=== PATIENT | female | born 1965 | race African-American/Black ===

== ENCOUNTER 2024-04-06 01:45 | Inpatient (IN) | payer MEDICARE ==
[2024-04-06] MEDS ORDERED: Nitroglycerin 0.4 MG TAB 1 EACH SL PRN (10:31)
[2024-04-06] MEDS ORDERED: Dextrose 50% Abboject 50 ML SYRINGE SLOW IVP PRN (10:45)
[2024-04-06] MEDS ORDERED: Insulin Lispro 100 UNIT/ML 10 ML VIAL SC PRN (10:45)
[2024-04-06] MEDS ORDERED: Glucagon 1 MG/ML KIT IM PRN (10:45)
[2024-04-06] MEDS ORDERED: Dextrose 5% in Water 1,000 ML IV PRN (10:45)
[2024-04-06 11:18] LABS: Troponin I 10.433 ng/mL (< 0.028)
[2024-04-06 11:18] LABS: ALT (SGPT) 36 U/L (8-55); AST (SGOT) 19 U/L (5-34); Albumin 3.4 g/dL (3.5-5.0); Alkaline Phosphatase 110 U/L (40-110); Anion Gap 13 mmol/L (10-20); BUN (Urea Nitrogen) 22 mg/dL (9.8-20.1); Bilirubin, Total 0.3 mg/dL (0.2-1.2); Calc. Creatinine Clearance 0 mL/min (70-130); Calcium 8.9 mg/dL (7.8-10.44); Carbon Dioxide 22 mmol/L (22-29); Chloride 106 mmol/L (98-107); Estimated GFR 80; Globulin 3.2 g/dL (2.4-3.5); Glucose 312 mg/dL (70-105); Lipase 34 U/L (8-78); Potassium 3.9 mmol/L (3.5-5.1); Protein, Total 6.6 g/dL (6.0-8.3); Sodium 137 mmol/L (136-145)
[2024-04-06 11:19] LABS: Troponin I 0.086 ng/mL (< 0.028)
[2024-04-06 11:32] LABS: #Basophils 0.04 10x3/uL (0.0-0.2); %Basophils 0.4 % (0.0-1.0); %Eosinophils 0.9 % (0.0-10.0); %Lymphocytes 11.5 % (21.0-51.0); %Monocytes 5.8 % (0.0-10.0); Hematocrit 48.4 % (36.0-47.0); Hemoglobin 15.3 g/dL (12.0-16.0); Mean Corpuscular HGB CONC 31.6 g/dL (32.0-36.0); Mean Corpuscular Hemoglobin 24.9 pg (27.0-31.0); Mean Corpuscular Volume 78.7 fL (78.0-98.0); Mean Platelet Volume 11.5 fL (7.4-10.4); Platelet Count 191 10x3/uL (130-400); RBC Distribution Width 14.1 % (11.5-14.5); Red Blood Cell (RBC) Count 6.15 mill/uL (4.20-5.40)
[2024-04-06] MEDS ORDERED: Iopamidol 370 76% 100 ML VIAL ONE (12:22)
[2024-04-06 13:33] VITALS: BMI 26.6
[2024-04-06] MEDS ORDERED: Heparin 10,000 UNITS/ 10 ML VIAL ONE (13:49)
[2024-04-06] MEDS ORDERED: Nitroglycerin 50 MG/250 ML BOT 0 ML ONE (13:49)
[2024-04-06 14:06] LABS: Troponin I 13.919 ng/mL (< 0.028)
[2024-04-06 14:33] VITALS: BP 102/62
[2024-04-06] MEDS ORDERED: fentaNYL 50 mcg/mL 1 mL Vial ONE (14:45)
[2024-04-06] MEDS ORDERED: Midazolam HCl 2 mg/2 ml Vial ONE (14:46)
[2024-04-06 14:55] LABS: Magnesium 1.7 mg/dL (1.6-2.6)
[2024-04-06 15:34] LABS: Bacteria/HPF None Seen HPF (None Seen); Bilirubin Negative (Negative); Blood, Urine Negative (Negative); Clarity Clear (Clear); Glucose, Urine (Dipstick) 70 mg/dL (Negative); Ketone, Urine Negative (Negative); Leukocyte 75 Leu/uL (Negative); Nitrite Negative (Negative); Protein, Urine (Dipstick) 10 mg/dL (Neg-Trace); RBC/HPF 0-3 HPF (0-3); Specific Gravity, Urine 1.033 (1.002-1.036); Squamous Epithelial 0-3 HPF (0-3); Urobilinogen Normal mg/dL (Less than 2); pH, Urine 5.5 (5.0-9.0)
[2024-04-06] MEDS ORDERED: Iopamidol-370 76% 500 ML MDV (1 ML CHARGE) ONE (15:43)
[2024-04-06] MEDS ORDERED: Acetaminophen/Codeine 30-300mg Tablet PO PRN (17:12)
[2024-04-06] MEDS ORDERED: Nitroglycerin 0.4 MG TAB (25 Tab Bottle) SL PRN (17:12)
[2024-04-06] MEDS ORDERED: Sodium Chloride 0.9% 200 ML IV PRN (17:12)
[2024-04-06] MEDS ORDERED: Sodium Chloride 0.9% 250 ML IV SCH (17:15)
[2024-04-06 17:46] LABS: Actual Bicarbonate (HCO3a) 21.8 mEq/L (22-28); CO2 Tension 53.6 mmHg (35.0-45.0); Calcium, Ionized (arterial) 1.22 mmol/L (1.12-1.30); Carboxyhemoglobin (COHb) 0.4 gm% (0.0-3.0); Hematocrit-ABG 35 % (36.0-47.0); Hemoglobin (Hb) 11.9 g/dL (12.0-16.0); O2 Tension (PaO2), arterial 62.2 mmHg (80.0-100.0); Potassium - ABG Lab 4.08 mmol/L (3.70-5.30); pH, Arterial 7.228 (7.35-7.45)
[2024-04-06 17:46] LABS: #Basophils 0.05 10x3/uL (0.0-0.2); %Basophils 0.2 % (0.0-1.0); %Eosinophils 0.3 % (0.0-10.0); %Lymphocytes 22.2 % (21.0-51.0); %Monocytes 7.3 % (0.0-10.0); %Neutrophils 69.5 % (42.0-75.0); Hematocrit 36.6 % (36.0-47.0); Hemoglobin 11.3 g/dL (12.0-16.0); Mean Corpuscular HGB CONC 30.9 g/dL (32.0-36.0); Mean Corpuscular Hemoglobin 25.6 pg (27.0-31.0); Mean Platelet Volume 11.1 fL (7.4-10.4); Platelet Count 393 10x3/uL (130-400); RBC Distribution Width 14.3 % (11.5-14.5); Red Blood Cell (RBC) Count 4.41 mill/uL (4.20-5.40)
[2024-04-06] MEDS ORDERED: Ipratropium/Albuterol 3 ML NEB NEB PRN (17:52)
[2024-04-06 17:53] LABS: Puncture Site RBA
[2024-04-06 17:58] LABS: Anion Gap 15 mmol/L (10-20); BUN (Urea Nitrogen) 24 mg/dL (9.8-20.1); Calc. Creatinine Clearance 86 mL/min (70-130); Calcium 9.1 mg/dL (7.8-10.44); Carbon Dioxide 23 mmol/L (22-29); Chloride 105 mmol/L (98-107); Estimated GFR 81; Glucose 196 mg/dL (70-105); Potassium 3.6 mmol/L (3.5-5.1); Sodium 139 mmol/L (136-145)
[2024-04-06 18:09] LABS: Critical Call Chem Troponin I RESULT DECREASING; Troponin I 10.393 ng/mL (< 0.028)
[2024-04-06] MEDS ORDERED: Electrolyte Replacement Protocol 1 EACH FS SCH (18:30)
[2024-04-06] MEDS ORDERED: Electrolyte Replacement Protocol FS PRN (18:45)
[2024-04-06] MEDS ORDERED: Furosemide 40 MG (4 mL) VIAL SLOW IVP SCH (19:45)
[2024-04-06] MEDS: Famotidine/PF 20 mg/2ml Vial SLOW IVP SCH (20:23)
[2024-04-06] MEDS: Insulin Lispro 100 UNIT/ML 10 ML VIAL SC PRN (20:23)
[2024-04-06] MEDS: methylPREDNISolone Sod Succ 40 MG VIAL IVP SCH (20:23)
[2024-04-06] MEDS: Famotidine 20 MG TAB PO SCH (20:24)
[2024-04-06] MEDS: Magnesium 2 GM/50 ML(in water) 2 GM in Premix 1 BAG IVPB SCH (20:24)
[2024-04-06 20:33] LABS: Actual Bicarbonate (HCO3v) 22.8 mEq/L (22-28); Base Excess -4.1 mEq/L (-2.0 to +3.0); Calcium, Ionized (venous) 1.13 mmol/L (1.16-1.32); Chloride (VBG) 103 mmol/L (98-106); Hematocrit-VBG 36 % (36.0-47.0); Hemoglobin (Hb) 12.2 g/dL (11.7-16.0); Potassium (VBG) 3.74 mmol/L (3.70-5.30); Sodium 141 mmol/L (133-146); pH (venous) 7.283 (7.32-7.43)
[2024-04-06] MEDS: Furosemide 40 MG (4 mL) VIAL SLOW IVP SCH ×2 (21:27→22:32)
[2024-04-06] MEDS: Furosemide 40 MG (4 mL) VIAL ONE (21:27)
[2024-04-06 22:34] LABS: Hematocrit 31.6 % (36.0-47.0); Platelet Count 267 10x3/uL (130-400)
[2024-04-06] MEDS: Heparin 10,000 UNITS/ 10 ML VIAL SLOW IVP SCH (23:26)
[2024-04-06] MEDS: Heparin 25,000 units/D5W 500 ML IVPB SCH (23:28)
[2024-04-07 06:54] LABS: #Basophils Less than 0.03 10x3/uL (0.0-0.2); #Eosinphils Less than 0.03 10x3/uL (0.0-0.7); %Basophils 0.1 % (0.0-1.0); %Lymphocytes 8.1 % (21.0-51.0); %Monocytes 6.6 % (0.0-10.0); %Neutrophils 84.8 % (42.0-75.0); Hematocrit 32.7 % (36.0-47.0); Hemoglobin 10.1 g/dL (12.0-16.0); Mean Corpuscular HGB CONC 30.9 g/dL (32.0-36.0); Mean Corpuscular Hemoglobin 25.4 pg (27.0-31.0); Mean Corpuscular Volume 82.2 fL (78.0-98.0); Mean Platelet Volume 10.6 fL (7.4-10.4); Platelet Count 293 10x3/uL (130-400); RBC Distribution Width 14.3 % (11.5-14.5); Red Blood Cell (RBC) Count 3.98 mill/uL (4.20-5.40)
[2024-04-07 07:11] LABS: ALT (SGPT) 35 U/L (8-55); AST (SGOT) 35 U/L (5-34); Albumin 3.3 g/dL (3.5-5.0); Alkaline Phosphatase 95 U/L (40-110); Anion Gap 13 mmol/L (10-20); BUN (Urea Nitrogen) 28 mg/dL (9.8-20.1); Bilirubin, Total 0.3 mg/dL (0.2-1.2); Calc. Creatinine Clearance 78 mL/min (70-130); Carbon Dioxide 22 mmol/L (22-29); Chloride 109 mmol/L (98-107); Estimated GFR 73; Globulin 3.3 g/dL (2.4-3.5); Glucose 193 mg/dL (70-105); Magnesium 2.4 mg/dL (1.6-2.6); Potassium 4.2 mmol/L (3.5-5.1); Protein, Total 6.6 g/dL (6.0-8.3); Sodium 140 mmol/L (136-145)
[2024-04-07] MEDS: Lactated Ringer's 500 ML IV SCH (08:05)
[2024-04-07] MEDS: Aspirin 81 mg Enteric Coated Tablet PO SCH (08:05)
[2024-04-07] MEDS ORDERED: Clopidogrel Bisulfate 75 MG TAB PO SCH (09:00)
[2024-04-07] MEDS: Furosemide 40 MG (4 mL) VIAL SLOW IVP SCH (12:05)
[2024-04-07] MEDS ORDERED: Communication Order-Pharmacy FS SCH (13:33)
[2024-04-07] MEDS: Acetaminophen 325 MG TAB PO PRN (16:43)
[2024-04-07] MEDS: Atorvastatin Calcium 40 MG TAB PO SCH (20:44)
[2024-04-08 07:01] LABS: #Basophils 0.04 10x3/uL (0.0-0.2); %Basophils 0.4 % (0.0-1.0); %Lymphocytes 23.7 % (21.0-51.0); %Monocytes 8.5 % (0.0-10.0); Hematocrit 29.5 % (36.0-47.0); Hemoglobin 9.2 g/dL (12.0-16.0); Mean Corpuscular HGB CONC 31.2 g/dL (32.0-36.0); Mean Corpuscular Hemoglobin 24.7 pg (27.0-31.0); Mean Corpuscular Volume 79.3 fL (78.0-98.0); Mean Platelet Volume 10.9 fL (7.4-10.4); Platelet Count 259 10x3/uL (130-400); RBC Distribution Width 14.3 % (11.5-14.5); Red Blood Cell (RBC) Count 3.72 mill/uL (4.20-5.40)
[2024-04-08 07:29] LABS: Hemoglobin A1c 8.2 % (4.0-6.0)
[2024-04-08 07:45] LABS: Anion Gap 10 mmol/L (10-20); BUN (Urea Nitrogen) 26 mg/dL (9.8-20.1); Calc. Creatinine Clearance 97 mL/min (70-130); Calcium 8.5 mg/dL (7.8-10.44); Carbon Dioxide 23 mmol/L (22-29); Cardiac Risk 2.7 (Less than 4.5); Chloride 107 mmol/L (98-107); Cholesterol 104 mg/dl (< 200 Desired); Estimated GFR 95; Glucose 159 mg/dL (70-105); HDL Cholesterol 39 mg/dL (>60 Neg Risk); LDL Cholesterol, Calculated 42 mg/dL; Potassium 3.5 mmol/L (3.5-5.1); Sodium 136 mmol/L (136-145); Triglycerides 116 mg/dL (Less than 150)
[2024-04-08] MEDS: Magnesium 2 GM/50 ML(in water) 2 GM in Premix 1 BAG IVPB SCH ×2 (08:23→09:05)
[2024-04-08] MEDS: Potassium Chloride 20 MEQ TAB PO SCH (08:23)
[2024-04-08 13:45] LABS: Potassium 4.5 mmol/L (3.5-5.1)
[2024-04-08] MEDS: Insulin Lispro 100 UNIT/ML 10 ML VIAL SC PRN (20:28)
[2024-04-08 21:42] LABS: Hematocrit 30.8 % (36.0-47.0); Hemoglobin 9.9 g/dL (12.0-16.0); Platelet Count 273 10x3/uL (130-400)
[2024-04-09 03:11] LABS: #Basophils 0.03 10x3/uL (0.0-0.2); %Basophils 0.3 % (0.0-1.0); %Eosinophils 1.5 % (0.0-10.0); %Lymphocytes 23.9 % (21.0-51.0); %Monocytes 9.4 % (0.0-10.0); %Neutrophils 64.6 % (42.0-75.0); Hematocrit 28.5 % (36.0-47.0); Hemoglobin 8.9 g/dL (12.0-16.0); Mean Corpuscular HGB CONC 31.2 g/dL (32.0-36.0); Mean Corpuscular Hemoglobin 24.9 pg (27.0-31.0); Mean Corpuscular Volume 79.6 fL (78.0-98.0); Mean Platelet Volume 10.9 fL (7.4-10.4); Platelet Count 255 10x3/uL (130-400); Red Blood Cell (RBC) Count 3.58 mill/uL (4.20-5.40)
[2024-04-09 03:33] LABS: Anion Gap 14 mmol/L (10-20); BUN (Urea Nitrogen) 19 mg/dL (9.8-20.1); Calc. Creatinine Clearance 98 mL/min (70-130); Calcium 8.6 mg/dL (7.8-10.44); Carbon Dioxide 19 mmol/L (22-29); Chloride 110 mmol/L (98-107); Estimated GFR 96; Glucose 183 mg/dL (70-105); Magnesium 2.3 mg/dL (1.6-2.6); Potassium 4.2 mmol/L (3.5-5.1); Sodium 139 mmol/L (136-145)
[2024-04-09] MEDS ORDERED: EPINEPHrine 1 MG/ML VIAL ONE (06:37)
[2024-04-09] MEDS ORDERED: PHENYLEPHRINE-NS 100 MCG/ML 10 ML SYRINGE ONE ×2 (06:37→06:45)
[2024-04-09] MEDS ORDERED: Bupivacaine PF 0.5% 30 ML VIAL ONE (06:37)
[2024-04-09] MEDS ORDERED: Albumin 5% 500 ML ONE (06:37)
[2024-04-09] MEDS ORDERED: Vecuronium 10 MG VIAL ONE ×2 (06:41→09:13)
[2024-04-09] MEDS ORDERED: fentaNYL PF 100 MCG/2 ML SYRINGE ONE (06:41)
[2024-04-09] MEDS ORDERED: PROPOFOL 20 ML ONE (06:43)
[2024-04-09] MEDS ORDERED: Midazolam HCl 2 mg/2 ml Vial ONE (06:44)
[2024-04-09] MEDS ORDERED: NEOSTIGMINE 3 MG/3 ML SYRINGE ONE (06:45)
[2024-04-09] MEDS ORDERED: Glycopyrrolate 0.2 MG/ML 5 ML SYRINGE ONE (06:45)
[2024-04-09] MEDS ORDERED: Ondansetron ODT 4 MG TAB ONE (07:00)
[2024-04-09] MEDS ORDERED: CEFAZOLIN 2 GM VIAL ONE (07:53)
[2024-04-09] MEDS ORDERED: Heparin 5,000 UNITS/ML VIAL ONE (08:14)
[2024-04-09] MEDS ORDERED: Esmolol 100 MG/10 ML VIAL ONE (08:14)
[2024-04-09] MEDS ORDERED: Mannitol 12.5 GM/50 ML ONE (08:14)
[2024-04-09] MEDS ORDERED: Thrombin 5000 UNITS/5 ML VIAL ONE (08:14)
[2024-04-09] MEDS ORDERED: Cardioplegic Soln 1,000 ML BAG ONE (08:14)
[2024-04-09] MEDS ORDERED: Protamine Sulfate 250 MG/25 ML VIAL ONE (08:14)
[2024-04-09] MEDS ORDERED: Heparin 30,000 units/30 ml VIAL ONE (08:14)
[2024-04-09] MEDS ORDERED: Lidocaine 2% PF 100 mg/5 ml Syringe ONE (08:14)
[2024-04-09] MEDS ORDERED: Calcium Chloride 1 GM/10 ML Abboject SYRINGE ONE (08:14)
[2024-04-09] MEDS ORDERED: Potassium Chloride 60 mEq (30 mL) VIAL ONE (08:14)
[2024-04-09] MEDS ORDERED: Magnesium 5 GM/10 ML VIAL ONE (08:14)
[2024-04-09] MEDS ORDERED: Sodium Bicarb 50 mEq/50 ML VIAL ONE (08:14)
[2024-04-09] MEDS ORDERED: Vancomycin 1 GM VIAL ONE (08:14)
[2024-04-09] MEDS ORDERED: EPINEPHrine 1 MG/ML AMP ONE (08:14)
[2024-04-09] MEDS ORDERED: Aminocaproic Acid 5 GM/20 ML VIAL ONE (08:14)
[2024-04-09] MEDS ORDERED: Papaverine 60 MG/2 ML VIAL ONE (08:14)
[2024-04-09] MEDS ORDERED: Insulin Regular 300 UNITS/3 ML VIAL ONE (08:57)
[2024-04-09] MEDS ORDERED: EPINEPHrine 1 MG/10 ML Abboject SYRINGE ONE (11:37)
[2024-04-09] MEDS ORDERED: Rocuronium Bromide 10 MG/ML (10ML VIAL) ONE (12:09)
[2024-04-09] MEDS ORDERED: Ipratropium/Albuterol 3 ML NEB NEB PRN (12:59)
[2024-04-09] MEDS ORDERED: HYDROcodone/Acetaminophen 5/325 mg Tablet PO PRN (12:59)
[2024-04-09] MEDS ORDERED: Bisacodyl 10 MG SUPP PR PRN (12:59)
[2024-04-09] MEDS ORDERED: Promethazine HCl 25 MG/ML VIAL IM PRN (12:59)
[2024-04-09] MEDS ORDERED: hydrALAZINE 20 MG/ML VIAL SLOW IVP PRN (12:59)
[2024-04-09] MEDS ORDERED: Bisacodyl 5 MG TAB PO PRN (12:59)
[2024-04-09] MEDS ORDERED: Acetaminophen 325 MG TAB PO PRN (12:59)
[2024-04-09] MEDS ORDERED: Mag-Al 1200 mg/1200 mg/30 ML UDCUP PO PRN (12:59)
[2024-04-09] MEDS ORDERED: Guaifenesin DM 100-10/5 ML UDCUP PO PRN (12:59)
[2024-04-09] MEDS: EPINEPHrine 4 MG in Dextrose 5% in Water 250 ML IVP SCH (13:00)
[2024-04-09 13:25] LABS: Actual Bicarbonate (HCO3a) 19.9 mEq/L (22-28); Base Excess (BEa) -4.8 mEq/L (-2.0 to +3.0); CO2 Tension 35.2 mmHg (35.0-45.0); Calcium, Ionized (arterial) 1.12 mmol/L (1.12-1.30); Carboxyhemoglobin (COHb) 0.8 gm% (0.0-3.0); Hematocrit-ABG 25 % (36.0-47.0); Hemoglobin (Hb) 8.5 g/dL (12.0-16.0); O2 Tension (PaO2), arterial 89.2 mmHg (80.0-100.0); Potassium - ABG Lab 3.39 mmol/L (3.70-5.30)
[2024-04-09 13:28] LABS: Puncture Site Arterial Line
[2024-04-09] MEDS ORDERED: Glucagon 1 MG/ML KIT SC PRN (13:30)
[2024-04-09] MEDS ORDERED: Dextrose 5% in Water 1,000 ML IV PRN (13:30)
[2024-04-09] MEDS ORDERED: Dextrose 50% Abboject 50 ML SYRINGE SLOW IVP PRN (13:30)
[2024-04-09] MEDS ORDERED: Insulin Reg, Human 100 UNITS in Sodium Chloride 0.9% 100 ML IVPB SCH (13:30)
[2024-04-09] MEDS: Morphine 2 MG/ML VIAL SLOW IVP PRN (13:43)
[2024-04-09] MEDS: Magnesium 2 GM/50 ML(in water) 2 GM in Premix 1 BAG IVPB SCH (13:44)
[2024-04-09] MEDS: Sodium Chloride 0.9% 1,000 ML IV SCH (13:44)
[2024-04-09 13:45] LABS: INR-International Normal Ratio 1.3; PTT 27.8 sec (22.9-36.1); Prothrombin Time 16.2 sec (12.0-14.7)
[2024-04-09] MEDS: Post-Op Insulin Drip Protocol IVPB ONE (13:45)
[2024-04-09 13:52] LABS: Band 16 % (5-11); Hypochromia SLIGHT = 6-15 cells HPF (0-5); Lymphocytes 14 % (21-51); Microcytosis SLIGHT = 6-15 cells HPF (0-5); Monocytes 4 % (0-10); Myelocyte 1 % (0-0); Neutrophil 65 % (42-75); Ovalocytes SLIGHT = 2-5 cells HPF (0-1); Platelet Adequacy Comment Platelets Normal; Polychromasia SLIGHT = 2-3 cells HPF (0-2); Toxic Granulation SLIGHT; Vacuoles SLIGHT
[2024-04-09 13:53] LABS: Anion Gap 10 mmol/L (10-20); BUN (Urea Nitrogen) 15 mg/dL (9.8-20.1); Calc. Creatinine Clearance 109 mL/min (70-130); Calcium 7.8 mg/dL (7.8-10.44); Carbon Dioxide 19 mmol/L (22-29); Chloride 119 mmol/L (98-107); Estimated GFR 101; Glucose 165 mg/dL (70-105); Hematocrit 24.4 % (36.0-47.0); Hemoglobin 7.6 g/dL (12.0-16.0); Mean Corpuscular HGB CONC 31.1 g/dL (32.0-36.0); Mean Corpuscular Hemoglobin 25.9 pg (27.0-31.0); Mean Platelet Volume 10.6 fL (7.4-10.4); Platelet Count 302 10x3/uL (130-400); Potassium 3.4 mmol/L (3.5-5.1); RBC Distribution Width 14.2 % (11.5-14.5); Red Blood Cell (RBC) Count 2.94 mill/uL (4.20-5.40); Sodium 145 mmol/L (136-145)
[2024-04-09] MEDS: Ondansetron PF 4 MG/2 ML Vial IVP PRN (14:11)
[2024-04-09 15:14] LABS: Actual Bicarbonate (HCO3a) 17.4 mEq/L (22-28); Base Excess (BEa) -7.5 mEq/L (-2.0 to +3.0); CO2 Tension 32.8 mmHg (35.0-45.0); Calcium, Ionized (arterial) 1.14 mmol/L (1.12-1.30); Carboxyhemoglobin (COHb) 0.3 gm% (0.0-3.0); Hematocrit-ABG 26 % (36.0-47.0); O2 Tension (PaO2), arterial 95.9 mmHg (80.0-100.0); pH, Arterial 7.342 (7.35-7.45)
[2024-04-09 15:20] LABS: Puncture Site Arterial Line
[2024-04-09] MEDS: CEFAZOLIN 2 GM in Sodium Chloride 0.9% 100 ML IVPB SCH (15:30)
[2024-04-09] MEDS: fentaNYL 50 mcg/mL 1 mL Vial SLOW IVP PRN (15:30)
[2024-04-09] MEDS: Ketorolac Tromethamine 30 MG (1 mL) VIAL IVP SCH (17:33)
[2024-04-09] MEDS: Aspirin Chewable 81 MG TAB PO SCH (17:34)
[2024-04-09 19:01] LABS: Hematocrit 25.5 % (36.0-47.0); Hemoglobin 7.9 g/dL (12.0-16.0)
[2024-04-09 19:07] LABS: Potassium 3.8 mmol/L (3.5-5.1)
[2024-04-09] MEDS: Potassium Chloride 20 MEQ (100 mL) BAG IVPB PRN (19:37)
[2024-04-09] MEDS: HYDROcodone/Acetaminophen 5/325 mg Tablet PO PRN (20:32)
[2024-04-09] MEDS: Atorvastatin Calcium 20 MG TAB PO SCH (20:33)
[2024-04-09] MEDS: Famotidine/PF 20 mg/2ml Vial SLOW IVP SCH (20:34)
[2024-04-09] MEDS: Albumin 5% 12.5 GM (250 mL) BOT IVPB PRN (20:34)
[2024-04-10] MEDS: NOREPINEPHRINE 8 MG/250 ML-D5W 250 ML IVPB PRN (04:49)
[2024-04-10] MEDS: fentaNYL 50 mcg/mL 1 mL Vial SLOW IVP PRN (05:18)
[2024-04-10 06:12] LABS: #Basophils 0.02 10x3/uL (0.0-0.2); #Monocytes 1.61 10x3/uL (0.11-0.59); #Neutrophils 18.53 10x3/uL (1.40-6.50); %Basophils 0.1 % (0.0-1.0); %Lymphocytes 3.7 % (21.0-51.0); %Monocytes 7.6 % (0.0-10.0); Hematocrit 23.2 % (36.0-47.0); Hemoglobin 7.3 g/dL (12.0-16.0); Mean Corpuscular HGB CONC 31.5 g/dL (32.0-36.0); Mean Corpuscular Hemoglobin 25.1 pg (27.0-31.0); Mean Corpuscular Volume 79.7 fL (78.0-98.0); Mean Platelet Volume 11.1 fL (7.4-10.4); Platelet Count 258 10x3/uL (130-400); RBC Distribution Width 14.6 % (11.5-14.5); Red Blood Cell (RBC) Count 2.91 mill/uL (4.20-5.40); White Blood Cell (WBC) Count 21.08 10x3/uL (4.8-10.8)
[2024-04-10 06:35] LABS: Anion Gap 14 mmol/L (10-20); BUN (Urea Nitrogen) 22 mg/dL (9.8-20.1); Calc. Creatinine Clearance 169 mL/min (70-130); Calcium 7.6 mg/dL (7.8-10.44); Carbon Dioxide 15 mmol/L (22-29); Chloride 114 mmol/L (98-107); Estimated GFR 68; Glucose 187 mg/dL (70-105); Potassium 4.7 mmol/L (3.5-5.1); Sodium 138 mmol/L (136-145)
[2024-04-10] MEDS: INSULIN REGULAR IN 0.9 % NACL 100 UNITS in Premix 1 BAG IVPB SCH (07:51)
[2024-04-10] MEDS: Aspirin 325 MG TAB PO SCH (08:12)
[2024-04-10 09:27] LABS: Actual Bicarbonate (HCO3a) 24.4 mEq/L (22-28); Analyzer IN Cardio OR; Base Excess (BEa) -2.3 mEq/L (-2.0 to +3.0); CO2 Tension 53.8 mmHg (35.0-45.0); Calcium, Ionized (arterial) 1.01 mmol/L (1.12-1.30); Carboxyhemoglobin (COHb) 0.5 gm% (0.0-3.0); Hematocrit-ABG 19 % (36.0-47.0); Hemoglobin (Hb) 6.4 g/dL (12.0-16.0); O2 Tension (PaO2), arterial 294.7 mmHg (80.0-100.0); Potassium - ABG Lab 3.62 mmol/L (3.70-5.30); pH, Arterial 7.275 (7.35-7.45)
[2024-04-10 09:27] LABS: Actual Bicarbonate (HCO3a) 22.6 mEq/L (22-28); Analyzer IN Cardio OR; Base Excess (BEa) -2.6 mEq/L (-2.0 to +3.0); CO2 Tension 40.6 mmHg (35.0-45.0); Calcium, Ionized (arterial) 1.13 mmol/L (1.12-1.30); Hematocrit-ABG 27 % (36.0-47.0); Hemoglobin (Hb) 9.3 g/dL (12.0-16.0); O2 Tension (PaO2), arterial 137.8 mmHg (80.0-100.0); Potassium - ABG Lab 3.82 mmol/L (3.70-5.30); pH, Arterial 7.363 (7.35-7.45)
[2024-04-10 09:27] LABS: Actual Bicarbonate (HCO3a) 20.1 mEq/L (22-28); Analyzer IN Cardio OR; Base Excess (BEa) -5.4 mEq/L (-2.0 to +3.0); Calcium, Ionized (arterial) 1.08 mmol/L (1.12-1.30); Carboxyhemoglobin (COHb) 0.3 gm% (0.0-3.0); Hematocrit-ABG 26 % (36.0-47.0); O2 Tension (PaO2), arterial 329.2 mmHg (80.0-100.0); Potassium - ABG Lab 3.75 mmol/L (3.70-5.30); pH, Arterial 7.329 (7.35-7.45)
[2024-04-10 09:28] LABS: Actual Bicarbonate (HCO3a) 23.2 mEq/L (22-28); Analyzer IN Cardio OR; Base Excess (BEa) -2.9 mEq/L (-2.0 to +3.0); CO2 Tension 47.2 mmHg (35.0-45.0); Calcium, Ionized (arterial) 1.05 mmol/L (1.12-1.30); Carboxyhemoglobin (COHb) 0.5 gm% (0.0-3.0); Hematocrit-ABG 19 % (36.0-47.0); Hemoglobin (Hb) 6.4 g/dL (12.0-16.0); O2 Tension (PaO2), arterial 330.2 mmHg (80.0-100.0); Potassium - ABG Lab 4.03 mmol/L (3.70-5.30); pH, Arterial 7.309 (7.35-7.45)
[2024-04-10 09:28] LABS: Actual Bicarbonate (HCO3a) 22.4 mEq/L (22-28); Analyzer IN Cardio OR; Base Excess (BEa) -2.6 mEq/L (-2.0 to +3.0); CO2 Tension 39.6 mmHg (35.0-45.0); Calcium, Ionized (arterial) 1.22 mmol/L (1.12-1.30); Carboxyhemoglobin (COHb) 0.7 gm% (0.0-3.0); Hematocrit-ABG 19 % (36.0-47.0); Hemoglobin (Hb) 6.3 g/dL (12.0-16.0); O2 Tension (PaO2), arterial 249.4 mmHg (80.0-100.0); Potassium - ABG Lab 3.97 mmol/L (3.70-5.30); pH, Arterial 7.371 (7.35-7.45)
[2024-04-10 09:28] LABS: pH, Arterial 7.342 (7.35-7.45)
[2024-04-10 09:28] LABS: Actual Bicarbonate (HCO3a) 24.7 mEq/L (22-28); Analyzer IN Cardio OR; Base Excess (BEa) -1.7 mEq/L (-2.0 to +3.0); CO2 Tension 51.7 mmHg (35.0-45.0); Carboxyhemoglobin (COHb) 0.8 gm% (0.0-3.0); Hematocrit-ABG 19 % (36.0-47.0); Hemoglobin (Hb) 6.3 g/dL (12.0-16.0); O2 Tension (PaO2), arterial 346.2 mmHg (80.0-100.0); Potassium - ABG Lab 4.06 mmol/L (3.70-5.30); pH, Arterial 7.297 (7.35-7.45)
[2024-04-10 09:29] LABS: Actual Bicarbonate (HCO3a) 20.9 mEq/L (22-28); Analyzer IN Cardio OR; Base Excess (BEa) -4.5 mEq/L (-2.0 to +3.0); CO2 Tension 39.4 mmHg (35.0-45.0); Calcium, Ionized (arterial) 1.18 mmol/L (1.12-1.30); Carboxyhemoglobin (COHb) 0.4 gm% (0.0-3.0); Hematocrit-ABG 25 % (36.0-47.0); Hemoglobin (Hb) 8.4 g/dL (12.0-16.0); O2 Tension (PaO2), arterial 435.1 mmHg (80.0-100.0); Potassium - ABG Lab 3.67 mmol/L (3.70-5.30)
[2024-04-10 09:29] LABS: Puncture Site Arterial Line
[2024-04-10 09:29] LABS: Puncture Site Arterial Line
[2024-04-10 09:30] LABS: Puncture Site Arterial Line
[2024-04-10 09:30] LABS: Puncture Site Arterial Line
[2024-04-10 09:30] LABS: Puncture Site Arterial Line
[2024-04-10 09:31] LABS: Puncture Site Arterial Line
[2024-04-10 09:31] LABS: Puncture Site Arterial Line
[2024-04-10] MEDS ORDERED: Iopamidol 370 76% 100 ML VIAL ONE (10:44)
[2024-04-10] MEDS: Insulin Glargine 30 UNITS/0.3 ML VIAL SC SCH (10:50)
[2024-04-10] MEDS: Sodium Bicarbonate 100 MEQ in Sodium Chloride 0.45% 1,000 ML IV SCH ×2 (10:50→20:21)
[2024-04-10] MEDS: Magnesium 2 GM/50 ML(in water) 2 GM in Premix 1 BAG IVPB SCH (11:13)
[2024-04-10] MEDS: Albumin 5% 12.5 GM (250 mL) BOT IVPB PRN (11:20)
[2024-04-10 15:52] LABS: Hematocrit 27.2 % (36.0-47.0); Hemoglobin 8.5 g/dL (12.0-16.0); Mean Corpuscular HGB CONC 31.3 g/dL (32.0-36.0); Mean Corpuscular Hemoglobin 26.4 pg (27.0-31.0); Mean Corpuscular Volume 84.5 fL (78.0-98.0); Mean Platelet Volume 11.6 fL (7.4-10.4); Platelet Count 206 10x3/uL (130-400); RBC Distribution Width 14.8 % (11.5-14.5); Red Blood Cell (RBC) Count 3.22 mill/uL (4.20-5.40)
[2024-04-10] MEDS: Calcium Chloride 1 GM/10 ML Abboject SYRINGE IVP SCH (16:05)
[2024-04-10] MEDS: Calcium Chloride 1 GM/10 ML Abboject SYRINGE ONE (16:11)
[2024-04-10 16:12] LABS: ALT (SGPT) 2137 U/L (8-55); AST (SGOT) 2720 U/L (5-34); Albumin 2.9 g/dL (3.5-5.0); Alkaline Phosphatase 58 U/L (40-110); Anion Gap 22 mmol/L (10-20); BUN (Urea Nitrogen) 28 mg/dL (9.8-20.1); Bilirubin, Total 1.1 mg/dL (0.2-1.2); Calc. Creatinine Clearance 45 mL/min (70-130); Calcium 7.3 mg/dL (7.8-10.44); Carbon Dioxide 13 mmol/L (22-29); Chloride 109 mmol/L (98-107); Estimated GFR 36; Globulin 1.8 g/dL (2.4-3.5); Glucose 150 mg/dL (70-105); Magnesium 3.3 mg/dL (1.6-2.6); Phosphorus 7.2 mg/dL (2.3-4.7); Potassium 6.2 mmol/L (3.5-5.1); Protein, Total 4.7 g/dL (6.0-8.3); Sodium 138 mmol/L (136-145)
[2024-04-10 16:14] LABS: Troponin I 4.909 ng/mL (< 0.028)
[2024-04-10 16:19] LABS: Band 13 % (5-11); Burr Cells SLIGHT = 2-5 cells HPF (0-1); Helmet Cells SLIGHT = 2-5 cells HPF (0-1); Hypochromia SLIGHT = 6-15 cells HPF (0-5); Lymphocytes 10 % (21-51); Metamyelocyte 2 % (0-0); Monocytes 4 % (0-10); Myelocyte 3 % (0-0); Neutrophil 68 % (42-75); Platelet Adequacy Comment Platelets Normal; Poikilocytosis SLIGHT = 6-15 cells HPF (0-5); Polychromasia SLIGHT = 2-3 cells HPF (0-2); Toxic Granulation SLIGHT
[2024-04-10] MEDS: Dextrose 50% Abboject 50 ML SYRINGE SLOW IVP SCH (16:20)
[2024-04-10] MEDS: Insulin Regular, Human 100 UNIT/ML 10 ML VIAL IVP SCH (16:21)
[2024-04-10 17:13] LABS: Lactic Acid 9.6 mmol/L (0.5-2.2)
[2024-04-10] MEDS: DOBUTamine 500 mg/250 ml 500 MG in Premix 1 BAG IVPB SCH (17:15)
[2024-04-10] MEDS: Etomidate 40 MG (20 mL) VIAL IVP SCH (17:46)
[2024-04-10] MEDS: Rocuronium Bromide 10 MG/ML (10ML VIAL) IVP SCH (17:48)
[2024-04-10] MEDS ORDERED: Atropine Sulfate 1 mg/10 ml Syringe ONE (17:49)
[2024-04-10] MEDS ORDERED: PHENYLEPHRINE-NS 100 MCG/ML 10 ML SYRINGE ONE (17:52)
[2024-04-10] MEDS ORDERED: NOREPINEPHRINE 8 MG/250 ML-D5W 250 ML ONE (18:13)
[2024-04-10] MEDS ORDERED: Rocuronium Bromide 10 MG/ML (10ML VIAL) ONE (18:15)
[2024-04-10] MEDS ORDERED: Ventilator Sedation Protocol FS SCH (18:15)
[2024-04-10] MEDS ORDERED: Etomidate 40 MG (20 mL) VIAL ONE (18:15)
[2024-04-10] MEDS: Fentanyl CADD 100 ML IV SCH (18:24)
[2024-04-10] MEDS ORDERED: DISCONTINUE PREVIOUS NARCOTIC PAIN MEDICATIONS AND BENZODIAZEPINES FS SCH (18:30)
[2024-04-10] MEDS: Fentanyl CADD 100 ML ONE (18:30)
[2024-04-10] MEDS ORDERED: Propofol 1,000 MG/100 ML VIAL IV PRN (18:30)
[2024-04-10] MEDS ORDERED: Propofol BOLUS 1,000 MG/100 ML VIAL IV PRN (18:30)
[2024-04-10] MEDS ORDERED: Morphine 2 MG/ML VIAL SLOW IVP PRN (18:30)
[2024-04-10] MEDS ORDERED: Fentanyl BOLUS 250 ML IVPB PRN (18:30)
[2024-04-10] MEDS ORDERED: Lorazepam 2 MG/ML VIAL SLOW IVP PRN (18:30)
[2024-04-10] MEDS: DOBUTamine 500 mg/250 ml 250 ML ONE (18:31)
[2024-04-10 19:01] LABS: Anion Gap 22 mmol/L (10-20); BUN (Urea Nitrogen) 29 mg/dL (9.8-20.1); Calc. Creatinine Clearance 43 mL/min (70-130); Calcium 7.6 mg/dL (7.8-10.44); Carbon Dioxide 9 mmol/L (22-29); Chloride 110 mmol/L (98-107); Estimated GFR 34; Glucose 238 mg/dL (70-105); Potassium 4.4 mmol/L (3.5-5.1); Sodium 137 mmol/L (136-145)
[2024-04-10 19:56] LABS: Base Excess (BEa) -17.2 mEq/L (-2.0 to +3.0); CO2 Tension 26.7 mmHg (35.0-45.0); Carboxyhemoglobin (COHb) 0.4 gm% (0.0-3.0); Hematocrit-ABG 26 % (36.0-47.0); Hemoglobin (Hb) 8.8 g/dL (12.0-16.0); O2 Tension (PaO2), arterial 142.5 mmHg (80.0-100.0); Potassium - ABG Lab 4.38 mmol/L (3.70-5.30)
[2024-04-10] MEDS ORDERED: Vasopressin 20 UNITS in Sodium Chloride 0.9% 50 ML IV SCH (20:00)
[2024-04-10 20:01] LABS: Actual Bicarbonate (HCO3a) 9.7 mEq/L (22-28); Puncture Site Arterial Line; pH, Arterial 7.177 (7.35-7.45)
[2024-04-10 20:02] LABS: ALV-art Gradient 537.125 mmHg (0-20)
[2024-04-10] MEDS: Sodium Bicarb 50 mEq/50 ML VIAL IVP SCH ×2 (20:17→20:18)
[2024-04-10] MEDS: Vasopressin In 0.9 % NaCl 40 UNIT in Premix 1 BAG IV SCH (20:18)
[2024-04-10] MEDS: CALCIUM GLUC 1 GM/NS 50 ML 1 GM in Premix 1 BAG IVPB SCH (20:18)
[2024-04-10 20:58] LABS: Actual Bicarbonate (HCO3a) 15.1 mEq/L (22-28); Base Excess (BEa) -9.6 mEq/L (-2.0 to +3.0); CO2 Tension 28.8 mmHg (35.0-45.0); Calcium, Ionized (arterial) 1.01 mmol/L (1.12-1.30); Carboxyhemoglobin (COHb) 0.5 gm% (0.0-3.0); Hematocrit-ABG 26 % (36.0-47.0); Hemoglobin (Hb) 8.9 g/dL (12.0-16.0); O2 Tension (PaO2), arterial 100.3 mmHg (80.0-100.0); Potassium - ABG Lab 4.56 mmol/L (3.70-5.30); pH, Arterial 7.337 (7.35-7.45)
[2024-04-10 21:00] LABS: Puncture Site Arterial Line
[2024-04-10] MEDS: Sodium Bicarb 50 MEQ/50 ML Abboject 8.4% SYRINGE IVP SCH (21:10)
[2024-04-10] MEDS: Calcium Gluconate 4.6 MEQ in Sodium Chloride 0.9% 100 ML IVPB ONE (21:26)
[2024-04-10] MEDS: Sodium Bicarb 50 MEQ/50 ML Abboject 8.4% SYRINGE ONE (21:26)
[2024-04-10 21:42] LABS: Lactic Acid 10.6 mmol/L (0.5-2.2)
[2024-04-10 22:27] VITALS: TEMP 97.8
[2024-04-10] MEDS: Insulin Regular, Human 100 UNIT/ML 10 ML VIAL SC PRN (23:14)
[2024-04-10 23:26] LABS: SARS-CoV-2 E Target Negative; SARS-CoV-2 N2 Target Negative; SARS-CoV-2 NAA Rapid Test Not Detected (NotDetected); SARS-CoV-2 RdRP gene Negative
[2024-04-11 00:26] LABS: ALT (SGPT) 4327 U/L (8-55)
[2024-04-11 00:30] LABS: AST (SGOT) Greater than 4202 U/L (5-34); Albumin 2.4 g/dL (3.5-5.0); Alkaline Phosphatase 65 U/L (40-110); Anion Gap 27 mmol/L (10-20); BUN (Urea Nitrogen) 34 mg/dL (9.8-20.1); Bilirubin, Total 1.8 mg/dL (0.2-1.2); Calc. Creatinine Clearance 41 mL/min (70-130); Calcium 7.5 mg/dL (7.8-10.44); Carbon Dioxide 14 mmol/L (22-29); Chloride 106 mmol/L (98-107); Estimated GFR 32; Globulin 1.6 g/dL (2.4-3.5); Glucose 288 mg/dL (70-105); Potassium 4.7 mmol/L (3.5-5.1); Sodium 142 mmol/L (136-145)
[2024-04-11] MEDS ORDERED: Famotidine/PF 20 mg/2ml Vial SLOW IVP SCH (09:00)
== END 2024-04-11 00:45 | disposition short-term general hospital (02) | DRG 233 ==
LOC: ERS 01:45 → ERHOLD 07:09 → 2SE 17:20 → CCU 17:49
PROVIDERS: ADMIT Internal Medicine; ATTEND Family Medicine
PROC: 4A023N7 Measurement of Cardiac Sampling and Pressure, Left Heart, Percutaneous Approach (ICD-10-PCS; 2024-04-06)
PROC: B2151ZZ Fluoroscopy of Left Heart using Low Osmolar Contrast (ICD-10-PCS; 2024-04-06)
PROC: B2111ZZ Fluoroscopy of Multiple Coronary Arteries using Low Osmolar Contrast (ICD-10-PCS; 2024-04-06)
PROC: 5A09357 Assistance with Respiratory Ventilation, Less than 24 Consecutive Hours, Continuous Positive Airway Pressure (ICD-10-PCS; 2024-04-06)
PROC: 02100Z9 Bypass Coronary Artery, One Artery from Left Internal Mammary, Open Approach (ICD-10-PCS; principal; 2024-04-09)
PROC: 021109W Bypass Coronary Artery, Two Arteries from Aorta with Autologous Venous Tissue, Open Approach (ICD-10-PCS; 2024-04-09)
PROC: 06BN0ZZ Excision of Left Femoral Vein, Open Approach (ICD-10-PCS; 2024-04-09)
PROC: 02L70CK Occlusion of Left Atrial Appendage with Extraluminal Device, Open Approach (ICD-10-PCS; 2024-04-09)
PROC: 5A1221Z Performance of Cardiac Output, Continuous (ICD-10-PCS; 2024-04-09)
PROC: 4A133R1 Monitoring of Arterial Saturation, Peripheral, Percutaneous Approach (ICD-10-PCS; 2024-04-09)
PROC: 30233J1 Transfusion of Nonautologous Serum Albumin into Peripheral Vein, Percutaneous Approach (ICD-10-PCS; 2024-04-09)
PROC: 3E033XZ Introduction of Vasopressor into Peripheral Vein, Percutaneous Approach (ICD-10-PCS; 2024-04-09)
PROC: 5A1935Z Respiratory Ventilation, Less than 24 Consecutive Hours (ICD-10-PCS; 2024-04-09)
PROC: 02HK3JZ Insertion of Pacemaker Lead into Right Ventricle, Percutaneous Approach (ICD-10-PCS; 2024-04-10)
PROC: 5A1223Z Performance of Cardiac Pacing, Continuous (ICD-10-PCS; 2024-04-10)
PROC: 0BH17EZ Insertion of Endotracheal Airway into Trachea, Via Natural or Artificial Opening (ICD-10-PCS; 2024-04-10)
PROC: 30233N1 Transfusion of Nonautologous Red Blood Cells into Peripheral Vein, Percutaneous Approach (ICD-10-PCS; 2024-04-10)
DX: I21.4 Non-ST elevation (NSTEMI) myocardial infarction (principal); I50.43 Acute on chronic combined systolic (congestive) and diastolic (congestive) heart failure; J96.01 Acute respiratory failure with hypoxia; R57.0 Cardiogenic shock; J96.02 Acute respiratory failure with hypercapnia; E87.20 Acidosis, unspecified; I11.0 Hypertensive heart disease with heart failure; I25.10 Atherosclerotic heart disease of native coronary artery without angina pectoris; E78.5 Hyperlipidemia, unspecified; E11.51 Type 2 diabetes mellitus with diabetic peripheral angiopathy without gangrene; Z98.890 Other specified postprocedural states
CPT/HCPCS: 33210; 36415; 36416; 36430; 36600; 71045; 71275; 75630; 80048; 80053; 80061; 81003; 81015; 82805; 83036; 83605; 83690; 83735; 83880; 84100; 84484; 85014; 85018; 85025; 85049; 85610; 85730; 86850; 86900; 86901; 93005; 93010; 93306; 93458; 93459; 94002; 94660; 94760; 96374; 96375; 99152; 99153; A4648; C1751; C1769; C1887; C1889; C1894; J0171; J0461; J0613; J0665; J1250; J1642; J1644; J1815; J1885; J1940; J2001; J2150; J2250; J2272; J2405; J2440; J2704; J2720; J2920; J3010; J3370; J3475; J3480; J3490; J7050; J7070; J7120; J7999; P9016; P9045; Q0162; Q9967; S0017; S0028; U0002